=== PATIENT | female | born 1965 | race Caucasian/White ===

== ENCOUNTER → 2017-06-10 | Day surgery (SDC) | payer OTHER ==
[~2017-06-10] VITALS: Ht 160 cm; Wt 74.0 kg
[~2017-06-10] MED LIST: *ONDANSETRON 4 MG VIAL PERIprocedural Use ONLY ONE; *morphine SULFATE 8 MG/ML PERIprocedure ONLY ONE; ACETAMINOPHEN 1000 MG/100 ML 100 ML IV SCH; CHLORHEXIDINE GLUCONATE 2 % 1 PACK (2 CLOTHS) TOPICAL PRN; DO NOT ADM ANY ANTICOAGULANT DRUGS PRN; EXCETAB30 PO; HEPARIN SODIUM - IV 10,000 UNITS/10 ML VIAL ONE; INSULIN HUMAN REGULAR 1,000 UNITS/10 ML VIAL SQ PRN; KETOROLAC TROMETHAMINE 30 MG/ML (IVP) VIAL IV PUSH ONE; KETOROLAC TROMETHAMINE 30 MG/ML (IVP) VIAL ONE; LACTATED RINGER'S 1000 ML IV PRN; METOPROLOL TARTRATE 25 MG TAB PO PRN; MORPHINE SULFATE 4 MG/ML INJ IV PRN; ONDANSETRON HCL 4 MG/2 ML VIAL IV PRN; ONDANSETRON HCL 4 MG/2 ML VIAL IV PUSH ONE; POVIDONE IODINE 5% (ANTISEPSIS KIT) 4 APPLICATIONS EACH NARE PRN; PROPOFOL 200 MG/20 ML AMP IV ONE; SODIUM BICARBONATE 8.4% INJ 0 ML ONE; SODIUM CHLORID 0.9% 500 ML IV PRN; SODIUM CHLORIDE 0.9% 20 ML VIAL ONE; SODIUM CHLORIDE 0.9% FLUSH 10 ML FLUSH IV FLUSH PRN; SODIUM CHLORIDE 0.9% FLUSH 10 ML FLUSH IV FLUSH SCH; VANCOMYCIN HCL 1000 MG ON-CALL/NS 250 ML IV SCH; ZANT150T2 PO; oxyCODONE/ACETAMINOPHEN 5 MG/325 MG TAB PO PRN
[2017-06-10] MEDS: BUPIVACAINE/EPINEPHRINE 0.5% PF 10 ML VIAL ONE (15:10)
--- NOTE | 2017-06-10 15:48 | PD.OP ---
cc: Avelino Jackson MD Operative Report Date of Surgery: Jun 10, 2017 Preoperative Diagnosis: Carcinoma of the breast Postoperative Diagnosis: Carcinoma of the breast Procedure: Placement of left subclavian [id number] Anesthesia: Gen. Surgeon: Avelino Jackson Rug Dyer(s): [place], [place] 3 Operation and Findings: Operative procedure: The patient was brought to the operating room and after satisfactory general anesthesia been obtained, the left chest was prepped and draped in usual sterile fashion. 0.5% Marcaine with epinephrine was used to infiltrate the skin for local anesthesia. A large-bore needle was used to cannulate the left subclavian vein without problem. The guidewire was inserted into the superior vena cava with placement confirmed on fluoroscopy. The skin was incised medial to the guidewire and a subcutaneous pocket fashion for the [id number]. The port was placed in the pocket and the catheter cut to the appropriate length. Dilator and introducer were placed over the guidewire after which the catheter was inserted into the superior vena cava, again with placement confirmed on fluoroscopy. Permanent picture was taken. The port was affixed to the pectoralis fashion with a 3-0 Vicryl suture. It was aspirated easily and flushed with heparinized saline. The skin was then closed with interrupted 4-0 PDS subcuticular stitches after assuring adequate hemostasis. Steri-Strips and sterile dressing were placed and the patient was then awakened and taken from the operating room, in satisfactory condition, having tolerated the procedure problem. Estimated blood loss was less than 20 mL's. The instrument, sponge, needle counts were reported as being correct 2 at the end of the procedure. Avelino Jackson MD Jun 10, 2017 15:48
--- NOTE | 2017-06-10 16:05 | RADRPT ---
EXAM DATE/TIME: 06/10/2017 15:37 [facility] COMPARISON: No previous studies available for comparison. INDICATIONS : Infusaport placement in the operating room. FLUORO TIME: 1.20 minutes IMAGE COUNT: 1 MEDICAL HISTORY : Non-responsive SURGICAL HISTORY : Non-responsive ENCOUNTER: Initial ACUITY: 1 day PAIN SCORE: Non-responsive. LOCATION: Left chest FINDINGS: Single spot film reveals Agdpwl-b-[id number] with tip in superior vena cava. CONCLUSION: 1. Jnujjf-h-Xzhf as above. Sancho Kaye MD on June 10, 2017 at 16:02 Board Certified Radiologist. This report was verified electronically.
[2017-06-10 19:00] VITALS: BP 129/67; PULSE 62; RESP 18; TEMP 98; O2SAT 100
== END | disposition home or self-care (01) ==
LOC: HSDC 10:02
PROVIDERS: ATTEND Surgery
DX: C50.919 Malignant neoplasm of unspecified site of unspecified female breast (principal); E78.5 Hyperlipidemia, unspecified; J45.901 Unspecified asthma with (acute) exacerbation; M79.7 Fibromyalgia; K21.9 Gastro-esophageal reflux disease without esophagitis; G43.909 Migraine, unspecified, not intractable, without status migrainosus; E66.3 Overweight; Z68.28 Body mass index [BMI] 28.0-28.9, adult; Z79.51 Long term (current) use of inhaled steroids; Z79.899 Other long term (current) drug therapy
CPT/HCPCS: 00532; 36561; C1788; J1644; J1885; J2270; J2405; J3010; J7120